=== PATIENT | female | born 2005 | race Caucasian/White ===

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

== ENCOUNTER 2025-03-12 13:26 | Outpatient (CLI) | payer MEDICAID, SELFPAY ==
--- NOTE | 2025-03-12 13:45 | US_ITS ---
WS: [id number] ULTRASOUND RIGHT BREAST HISTORY: RIGHT breast mass, prior biopsy. Benign biopsy. COMPARISON: 03/06/2024 and 03/14/2024 TECHNIQUE: 2-D and Doppler. Cystic and solid mass with extension of small cystic components extending into the adjacent breast parenchyma at 1:00 is reidentified. This mass is undergone prior biopsy. Main mass measures 2.1 x 1.9 x 1.2 cm and appears to have slightly decreased in size since the prior study. Mild increased vascularity. US/US breast RT limited* [id number] IMPRESSION: BI-RADS: 2- Benign FOLLOW-UP: See Report RIGHT breast mass which has been previously biopsied is slightly decreased in s ize.
== END 2025-03-12 13:27 | disposition home or self-care (01) ==
LOC: RAD 13:27
PROVIDERS: Family Provider Pediatrics Adolescent Medicine; PCP Family Medicine; Visit Provider Family Medicine
DX: N63.12 Unspecified lump in the right breast, upper inner quadrant (principal); R92.8 Other abnormal and inconclusive findings on diagnostic imaging of breast
CPT/HCPCS: 76642